=== PATIENT | male | born 1985 | race Caucasian/White ===

== ENCOUNTER 2023-01-01 03:50 | Emergency (ER) | payer SELFPAY ==
--- NOTE | 2023-01-01 03:56 | ED.GENADULT ---
HPI - General Adult General Chief complaint: Wound/Laceration Stated complaint: INDEX FINGER ON LEFT HAND CUT/BLEEDING Time Seen by Provider: 01/01/23 03:53 History of Present Illness HPI narrative: 29-year-old male without chronic medical history presents with a chief complaint of an accidental laceration to the volar aspect of both the index and middle fingers of his left hand. He states his tetanus is up-to-date. He denies any numbness, tingling or weakness. He states that he was up early to make his significant other breakfast and he was working in the kitchen, reached into the oven and caught his finger on a sharp metal edge. He states that it started bleeding immediately and that he applied some pressure to get the bleeding under control eventually. He is otherwise well and free of complaint Related Data Previous Rx's Medication Instructions Recorded cephalexin 500 mg capsule 500 mg PO Q6H 7 days #28 caps 01/01/23 hydrocodone 5 mg-acetaminophen 325 1 tab PO Q4-6H PRN pain #10 tabs 01/01/23 mg tablet Allergies Allergy/AdvReac Type Severity Reaction Status Date / Time No Known Drug Allergies Allergy Verified 01/01/23 04:04 Review of Systems Review of Systems Narrative: GENERAL: Denies chills, fatigue, malaise, fever, sweats. HEENT: Denies sinus pain, ear pain, sore throat, difficulty swallowing, dizziness. RESPIRATORY: Denies dyspnea, cough, wheezing, hemoptysis, sputum. CARDIOVASCULAR: Denies chest pain, palpitations, orthopnea, edema, GASTROINTESTINAL: Denies nausea, vomiting, abdominal pain, diarrhea, constipation, melena. : Denies dysuria, frequency, incontinence, hematuria, urinary retention. MUSCULOSKELETAL: See HPI SKIN: See HPI NEUROLOGIC: Denies weakness, headache, numbness, change in speech, confusion, seizures, incoordination. PSYCHIATRIC: No concerning psychosocial issues. 12 point review of systems is negative except for those stated above Exam Narrative Exam Narrative: GEN: AOx3 and in mild distress EYES: Pupils are equal, round, and reactive to light and accommodation. Extraoccular muscles are intact bilaterally. There is no subconjunctival hemorrhage or exudate. CHEST: Lungs are clear to auscultation bilaterally and free of wheezes, rales, or rhonchi. Heart rate is regular rhythm, there are no murmurs, clicks, rubs, or gallops. There is no chest wall tenderness. ABD: Abdomen is soft and nontender. There is no guarding or rebound. Bowel sounds are normal in all 4 quadrants. There is no mass or organomegaly. EXT: 3 cm laceration on volar surface left index finger just proximal to the DIP, it is visualized in a bloodless field and there is no evidence of tendon involvement. A 2nd laceration, slightly deeper on the volar surface of his left middle finger just distal to the DIP is also 3 cm, visualized bloodless field and no evidence of tendon or bony involvement No foreign body, no bony involvement Full painless ROM of all extremities with no loss of sensation or strength. SKIN: Warm, pink, and dry. No erythema or rash Initial Vital Signs Initial Vital Signs: Vital Signs Temperature 97.6 F 01/01/23 03:57 Pulse Rate 101 H 01/01/23 03:57 Respiratory Rate 18 01/01/23 03:57 Blood Pressure 142/82 H 01/01/23 03:57 Pulse Oximetry 96 01/01/23 03:57 Oxygen Delivery Method Room Air 01/01/23 03:57 Procedures Laceration Repair Laceration 1: Site: hand Side (If applicable): left Size (cm): 3 Description: linear Depth: simple, single layer Pre-repair: wound explored, irrigated extensively and cleansed with chlorhexadine Skin layer closed with: nylon Skin layer suture size: 4-0 Number of sutures: 6 Technique: simple, interrupted Laceration 2: Site: hand Side (If applicable): left Size (cm): 3 Description: linear Depth: simple, single layer Pre-repair: wound explored, irrigated extensively and cleansed with chlorhexadine Skin layer closed with: nylon Skin layer suture size: 4-0 Number of sutures: 7 Technique: simple, interrupted Nerve Block Nerve Block 1: Time out performed: Yes Local Anesthetic: lidocaine 1% Amount of anesthesia used (mL): 4 Side: left Nerve Blocks: digital Procedure Successful: Yes Patient Tolerated Procedure: Well Course Orders Ordered: Discontinued Medications Hydrocodone Bitart/Acetaminophen (Hydrocodone/Acet 5/325 Prepack) 1 bottle [facility] [place] ONE Stop: 01/01/23 04:41 Cefazolin Sodium (Cephalexin 250 Mg Cap Prepack) 1 bottle [facility] [place] ONE Stop: 01/01/23 04:41 Lidocaine HCl (Lidocaine 1% 20 Ml) 20 ml INJ INTRA-OP ONE Stop: 01/01/23 04:10 Vital Signs Vital signs: Vital Signs - 8 hr 01/01/23 03:57 Temperature 97.6 F Pulse Rate 101 H Respiratory Rate 18 Blood Pressure 142/82 H Pulse Oximetry 96 Oxygen Delivery Method Room Air Medical Decision Making MDM Narrative Medical decision making narrative: [37] year old patient presents with accidental lacerations to index and middle finger of left hand Prior Charts reviewed in our EMR Primary Historian: patient Patient with 2 accidental lacerations, tetanus is up-to-date, no tendon involvement, no foreign body. Digital blocks on both fingers, extensive efforts to clean with hemostasis and wound closure, antibiotics as prepack and remainder sent to his pharmacy of choice Patient's symptoms improved over duration of stay with above-stated therapies. Findings and discharge diagnosis discussed with patient/family followed by verbalization of understanding Return precautions discussed with patient/family whom verbalize understanding of diagnosis and plan Discharge Plan Departure Patient Disposition: Home Clinical Impression: Laceration Instructions: DI for Laceration Repair Activity Restrictions/Additional Instructions: Please keep the wound clean and dry to the best of your ability. Please monitor for signs of infection such as redness to the skin or increasing pain. Have the sutures/janine removed by your doctor in about 10 days. If you are unable to get into your doctor, we would be happy to remove the sutures/janine in that same timeframe. Prescription for antibiotic and some pain meds sent to [facility] Prescriptions: New hydrocodone-acetaminophen 5-325 mg tablet 1 tab PO Q4-6H PRN (Reason: pain) Qty: 10 0RF cephalexin 500 mg capsule 500 mg PO Q6H 7 Days Qty: 28 0RF Stand Alone Forms: Patient Portal/API
[2023-01-01 03:57] VITALS: BP 142/82; PULSE 101; RESP 18; TEMP 36.4; O2SAT 96; BMI 25.7
[2023-01-01] MEDS: cephALEXin 250 MG CAP PREPACK 1 BOTTLE MISC (04:52)
[2023-01-01] MEDS: HYDROCODONE/ACET 5/325 PREPACK 1 BOTTLE MISC (04:52)
[2023-01-01] MEDS: LIDOCAINE 1% 20 ML INJ (04:53)
== END 2023-01-01 05:10 | disposition home or self-care (01) ==
PROVIDERS: Emergency Provider Emergency Medicine
DX: S61.211A Laceration without foreign body of left index finger without damage to nail, initial encounter (principal); S61.213A Laceration without foreign body of left middle finger without damage to nail, initial encounter; W45.8XXA Other foreign body or object entering through skin, initial encounter; Y93.G3 Activity, cooking and baking
CPT/HCPCS: 12002; 64450; 99283

== ENCOUNTER 2023-02-09 00:38 | Emergency (ER) | payer SELFPAY ==
[2023-02-09] VITALS (32 sets, daily range): BP systolic 103–135; BP diastolic 50–84; PULSE 77–117; RESP 12–28; TEMP 36.4–36.6; O2SAT 90–100; BMI 25.7
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
[2023-02-09] MEDS: HYDROMORPHONE 0.5 MG INJ IV (00:55)
[2023-02-09 00:59] LABS: Add Manual Diff / Slide Review NO; Basophils Absolute Auto 100 /uL (0-100); Basophils Percent Auto 0.9 % (0-2); Eosinophils Absolute Auto 200 /uL (0-450); Eosinophils Percent Auto 2.7 % (2-4); Hematocrit 41.1 % (41-53); Hemoglobin 14.1 g/dL (13.5-17.5); Lymphocytes Absolute Auto 1900 /uL (1100-4500); Lymphocytes Percent Auto 20.5 % (25-40); Mean Corpuscular HGB Conc 34.3 % (30-36); Mean Corpuscular Hemoglobin 31.1 PG (26-34); Mean Corpuscular Volume 90.8 fL (80-100); Monocytes Absolute Auto 700 /uL (0-900); Monocytes Percent Auto 8.1 % (3-14); Neutrophils Absolute Auto 6200 /uL (1500-7000); Neutrophils Percent Auto 67.8 % (50-75); Platelet Count 330 X10^3/uL (150-400); Red Blood Cell Count 4.53 X10^6/uL (4.5-5.9); Red Cell Distribution Width 12.1 % (11.6-14.8); White Blood Cell Count 9.1 X10^3/uL (4.5-11.0)
[2023-02-09] MEDS: TET,DIPH,PERTUSS(ACELL),VAC/PF 0.5 ML SYRINGE IM (01:16)
[2023-02-09] MEDS: HYDROMORPHONE 1 MG INJ IV (01:18)
[2023-02-09] MEDS: KETOROLAC 30 MG/ML VIAL 15 MG IV (01:18)
--- NOTE | 2023-02-09 01:23 | PC.NURSE ---
Jean Peirre STEELE at bedside speaking with pt. Pt began to answer the officer's questions but upon further questioning pt became angry and reports that he no longer want to speak with the officer.
[2023-02-09 01:26] LABS: Alanine Aminotransferase 21 IU/L (<50); Albumin 3.7 g/dL (3.5-5.0); Albumin Globulin Ratio 1.1 (1.0-2.8); Alkaline Phosphatase 65 U/L (38-126); Aspartate Aminotransferase 34 IU/L (17-59); Bilirubin Total 0.6 mg/dL (0.2-1.3); Blood Urea Nitrogen 12 mg/dL (9-20); Calcium 9.1 mg/dL (8.4-10.2); Carbon Dioxide 20 mmol/L (22-32); Chloride 103 mmol/L (98-107); Estimated Glomerular Filt Rate > 60 mL/min (>60); Globulin 3.4 g/dL (1.7-4.1); Glucose 170 mg/dL (70-100); Sodium 135 mmol/L (137-145); Total Protein 7.1 g/dL (6.3-8.2)
[2023-02-09 01:31] LABS: HEMOLYSIS 80 (0-50); Potassium 4.8 mmol/L (3.4-5.1)
--- NOTE | 2023-02-09 02:09 | PC.NURSE ---
This RN attempting to irrigate wound. Pt does not tolerate well and refuses to allow RN to complete the wound irrigation.
--- NOTE | 2023-02-09 02:30 | PC.NURSE ---
This RN has been able to palpate a strong R sided dorsalis pedis pulse at 0045, 0100, 0200. R foot is warm, dry and pink with a cap refill of <2 seconds.
--- NOTE | 2023-02-09 02:47 | PC.NURSE ---
Pt allowed RN to fully irrigate and dress his two R leg wounds. R thigh is seeping small amounts of blood and the calf wound has no signs of bleeding. After following directions for application of dressing pt falls asleep.
[2023-02-09] MEDS: HYDROCODONE/ACET 5/325 PREPACK 1 BOTTLE MISC (06:30)
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
== END 2023-02-09 06:25 | disposition home or self-care (01) ==
PROVIDERS: Emergency Provider Emergency Medicine
DX: S81.831A Puncture wound without foreign body, right lower leg, initial encounter (principal); W32.0XXA Accidental handgun discharge, initial encounter; Z23 Encounter for immunization
CPT/HCPCS: 71045; 73502; 73552; 73590; 80053; 85025; 90471; 96374; 96375; 96376; 99285; 99291; 99292; 90715; J1170; J1885

== ENCOUNTER 2023-02-19 02:56 | Emergency (ER) | payer OTHER, SELFPAY ==
[2023-02-19 03:00] VITALS: BP 124/77; PULSE 85; RESP 16; TEMP 36.6; O2SAT 98
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
[2023-02-19 03:18] VITALS: BMI 28.2
== END 2023-02-19 03:30 | disposition home or self-care (01) ==
PROVIDERS: Emergency Provider Family Medicine Addiction Medicine
DX: S71.131D Puncture wound without foreign body, right thigh, subsequent encounter (principal); S81.831D Puncture wound without foreign body, right lower leg, subsequent encounter; W34.00XD Accidental discharge from unspecified firearms or gun, subsequent encounter
CPT/HCPCS: 99281; 99282